=== PATIENT | male | born 1935 | race Caucasian/White ===

== ENCOUNTER 2019-07-17 15:52 | Inpatient (IN) | payer OTHER ==
[~2019-07-17] VITALS: Ht 152.4 cm; Wt 84.4 kg
[~2019-07-17 15:52] MED LIST: AGGRENOX 25 MG1 EACH PO; ALLEGRA180 MG PO; APAP500 PO; ASPIR-TRIN325 MG PO; AVODART0.5 MG PO; BENICAR HCT 401 EACH PO; BYSTOLIC20 MG PO; CHLORTHALIDONE25 MG PO; CLONIDINE HCL0.1 MG PO; COLACE 100 MG100 MG PO; COLACE100 MG PO; COZAAR 50 MG TA50 M1 PO; DOXYCYCLINE 10100 M1 PO; DOXYCYCLINE 10100 MG PO; ENOXAPARIN40 MG/0.1 SUBQ; FLONASE16 GM NASAL; HYDROCODONE-AP1 EACH PO; HYTRIN10 MG PO; KEFLEX500 MG PO; LIPITOR20 MG PO; LUPRON DEPOT45 MG; MILK OF MA400 MG/5 M PO; NABUMETONE 500500 M1 PO; NABUMETONE PO; NORCO 10-325 T1 EACH PO; NOVOLOG100 UNIT/1 SUBQ; PROVENTIL IH; RAZADYNE 8 MG PO; SENNA LAX8.6 MG PO; SUPRAX400 MG PO; TERAZOSIN PO; TIZANIDINE HCL2 M1 PO; TIZANIDINE HCL6 MG PO; TOPROL XL50 MG PO; TYLENOL EX-STR500 M2 PO; TYLENOL EXTRA500 MG PO; VENTOLIN HFA INH8 GM INH; ZANAFLEX PO; ZANAFLEX6 MG PO; ZOFRAN ODT4 MG PO
[2019-07-17 16:20] VITALS: BP 142/82
[2019-07-17 19:30] VITALS: BP 143/77
[2019-07-17 20:40] LABS: ABSOLUTE NEUTROPHILS 6.9 thou/uL (1.4-8.2); BASOPHILS 0.5 % (0.0-2.0); EOSINOPHILS 2.6 % (0.0-3.0); HEMATOCRIT 42.3 % (42.0-52.0); LYMPHOCYTES 11.7 % (24.0-44.0); MCH 30.8 pg (26.0-34.0); MCV 93.6 fL (80.0-100.0); MONOCYTES 9.6 % (1.0-8.0); PLATELET COUNT 177 thou/uL (150-400); POLYS 75.6 % (36.0-66.0); RBC 4.52 mil/uL (4.50-6.00); RDW 14.1 % (10.5-14.5); WBC 9.2 thou/uL (4.0-11.0)
[2019-07-17 20:51] LABS: ALBUMIN 3.4 g/dL (3.4-5.0); CALCIUM 8.9 mg/dL (8.5-10.1); CREATININE 1.4 mg/dL (0.7-1.3); POTASSIUM 4.6 mmol/L (3.5-5.1); TOTAL BILIRUBIN 0.5 mg/dL (<0.1-1.0); TOTAL PROTEIN 7.3 g/dL (6.4-8.2)
[2019-07-18] VITALS: BP 142/81
[2019-07-18 04:45] VITALS: BP 146/83
[2019-07-18 07:22] VITALS: BP 147/68
--- NOTE | 2019-07-18 08:39 | EKG ---
[address] [address] ELECTROCARDIOGRAM REPORT Name: PEREZ PEÑA Room #: 351-P ADM IN M.R.#: [id number] Admission: 07/17/19 Attend Phys: Yaw Stewart Discharge: Date of : 33 Report #: [id number] THIS REPORT FOR: //name// [facility] Test Date: 2019-07-17 Test Time: 18:17:59 Pat Name: PEREZ PEÑA Department: Room: 351 P Gender: M Lead Technical Writer: Yaw QIU : 1935 Requested By: Dorian Ayoub Order Number: [id number] MD: Olegario Sheehan Measurements Intervals [place] Rate: 97 P: 53 [place]: 142 QRS: 9 QRSD: 103 T: QT: 383 QTc: 487 Interpretive Statements Sinus rhythm Nonspecific ST and T wave abnormality Borderline prolonged QT interval Compared to ECG 11/07/2013 10:50:49 Atrial premature complex(es) no longer present ST (T wave) deviation no longer present Electronically Signed On 07-18-2019 8:39:41 WEIR FISHER by Olegario Sheehan [email or web address] <ELECTRONICALLY SIGNED> By: Olegario Sheehan MD, FACC 07/18/19 0839 1817 1817 Olegario Sheehan MD, [facility] /EPI
--- NOTE | 2019-07-18 11:03 | 2DMMODE ---
[facility] [address] [place] [address] 2 D/M-MODE ECHOCARDIOGRAM Name: PEREZ PEÑA Room #: 351-P [facility] IN ..#: [id number] Admission: 07/17/19 Attend Phys: Dorian Padilla Discharge: Date of : 34 Report #: [id number] THIS REPORT FOR: //name// APPROVED REPORT Study performed: 07/18/2019 10:03:47 EXAM: Comprehensive 2D, Doppler, and color-flow Echocardiogram Patient Location: Echo lab Room #: 351 Status: routine BSA: 1.92 HR: 98 bpm BP: 147/68 mmHg Rhythm: NSR Other Information Study Quality: Good Indications Short of breath. Hx: CVA, CA, HTN. 2D Dimensions RVDd: 40.67 mm IVSd: 11.00 (7-11mm) LVOT Diam: 21.16 (18-24mm) LVDd: 64.00 mm PWd: 11.00 (7-11mm) Ascending Ao: 35.03 (22-36mm) LVDs: 57.17 (25-40mm) Aortic Root: 39.28 mm Volumes Left Atrial Volume (Systole) Single Plane 4CH: 49.55 mL Single Plane 2CH: 71.03 mL LA ESV Index: 34.00 mL/m2 Aortic Valve AoV Peak Ar.: 1.35 m/s AO Peak Gr.: 7.26 mmHg LVOT Max P.42 mmHg LVOT Max V: 0.78 m/s AMAYA Vmax: 2.03 cm2 AI Vmax: 3.98 m/s AI Merrick: 3.76 m/s2 AI PHT: 307.36 ms Mitral Valve [facility] [address] [place] [address] 2 D/M-MODE ECHOCARDIOGRAM Name: PEREZ PEÑA Room #: 351-P [facility] IN [facility].#: [id number] Admission: 07/17/19 Attend Phys: Dorian Padilla Discharge: Date of : 34 Report #: [id number] E/A Ratio: 0.9 MV Decel. Time: 143.64 ms MV E Max Ar.: 0.81 m/s MV A Ar.: 0.91 m/s MV PHT: 41.66 ms IVRT: 76.12 ms Pulmonary Valve PV Peak Ar.: 0.70 m/s PV Peak Gr.: 1.96 mmHg Pulmonary Vein P Vein S: 0.50 m/s P Vein A: 0.33 m/s P Vein D: 0.60 m/s P Vein A Dur.: 100.3 msec P Vein S/D Ratio: 0.83 Tricuspid Valve TR Peak Ar.: 3.59 m/s RAP Estimate: 10.00 mmHg TR Peak Gr.: 52.00 mmHg PA Pressure: 62.00 mmHg Left Ventricle Left ventricle is moderately dilated. There is normal left ventricular wall thickness. Left ventricular systolic function is severely decreased. LVEF is 25%. Mild diastolic dysfunction is present (impaired relaxation pattern). Right Ventricle The right ventricle is normal size. Right ventricle is mildly hypokinetic. Atria Left atrium is mildly dilated. The right atrium size is normal. Aortic Valve The aortic valve is normal in structure. Mild to moderate aortic regurgitation. There is no aortic valvular stenosis. Mitral Valve The mitral valve is normal in structure. Moderate mitral regurgitation. Tricuspid Valve The tricuspid valve is normal in structure. Mild tricuspid regurgitation. Estimated PAP is 62mmHg. [facility] [address] [place] [address] 2 D/M-MODE ECHOCARDIOGRAM Name: CASEYPEREZ Jovi Room #: 351-P [facility] IN .R.#: [id number] Admission: 07/17/19 Attend Phys: Dorian Padilla Discharge: Date of : 34 Report #: [id number] Pulmonic Valve The pulmonary valve is normal in structure. Trace pulmonic regurgitation. Great Vessels Aortic root is mildly dilated. The ascending aorta is normal in size. IVC is dilated and collapses <50% with inspiration. Pericardium Trivial to small pericardial effusion. <Conclusion> Left ventricle is moderately dilated. LVEF is 25%. Left atrium is mildly dilated. The aortic valve is normal in structure. Mild to moderate aortic regurgitation. The mitral valve is normal in structure. Moderate mitral regurgitation. The tricuspid valve is normal in structure. Mild tricuspid regurgitation. Estimated PAP is 62mmHg. The pulmonary valve is normal in structure. Trace pulmonic regurgitation. Trivial to small pericardial effusion. <ELECTRONICALLY SIGNED> By: Manuel Tovar MD 07/18/191101 01 01 Manuel Tovar MD /INF
[2019-07-18 12:09] VITALS: BP 132/70
[2019-07-18 17:02] LABS: CHOLESTEROL 190 mg/dL (<200); HDL CHOLESTEROL 50 mg/dL (>40); LDL CHOLESTEROL 123 mg/dL (<100); TC:HDL 3.8 Ratio (Not establshd); TRIGLYCERIDE 88 mg/dL (<150); VLDL 18 mg/dL (<40)
[2019-07-18 21:20] VITALS: BP 141/64
[2019-07-18 22:23] LABS: BE(vivo) -4.1 mmol/L (-2 to +3); HCO3 18.3 mmol/L (22.0-26.0); PCO2 27.5 mmHg (35.0-45.0); PO2 78.8 mmHg (80.0-100.0); pH 7.441 (7.360-7.450); sO2 96.3 % (92.0-98.0)
[2019-07-18 23:30] LABS: URINE BILIRUBIN NEGATIVE (Negative); URINE BLOOD 3+ (Negative); URINE CLARITY SL CLOUDY; URINE COLOR YELLOW; URINE GLUCOSE-RANDOM* NEGATIVE (Negative); URINE KETONES NEGATIVE (Negative); URINE LEUKOCYTES-REFLEX 2+ (Negative); URINE NITRITE-REFLEX POSITIVE (Negative); URINE PROTEIN (DIPSTICK) NEGATIVE (Negative); URINE UROBILINOGEN 0.2 E.U./dl (0.2-1.0)
[2019-07-18 23:37] LABS: BACTERIA-REFLEX >30 Many /HPF (None Seen); HYALINE CASTS 0-3 Few /LPF (None Seen); MUCUS 0-3 Light strn/LPF (None Seen); SQUAMOUS 0-3 Few /LPF (0-3)
[2019-07-18 23:38] LABS: CRYSTALS None Seen /LPF (None Seen)
[2019-07-19 00:30] VITALS: BP 106/59
[2019-07-19 04:45] VITALS: BP 102/54
[2019-07-19 06:05] LABS: CALCIUM 8.8 mg/dL (8.5-10.1); CREATININE 1.7 mg/dL (0.7-1.3); POTASSIUM 4.2 mmol/L (3.5-5.1)
[2019-07-19 07:47] VITALS: BP 92/65
--- NOTE | 2019-07-19 10:00 | H ---
[facility] [place] [address] HISTORY AND PHYSICAL Name: CASEYPEREZ Jovi Room #: 206-P ADM IN M.R.#: [id number] Admission: 07/17/19 Attend Phys: Yaw Stewart Discharge: Date of : 34 Report #: [id number] THIS REPORT FOR: //name// CC: Dorian Ayoub DATE OF SERVICE: 07/17/2019 ATTENDING PHYSICIAN: Dr. Ayoub. CHIEF COMPLAINT: Shortness of breath. HISTORY OF PRESENT ILLNESS: The patient is an 84-year-old gentleman with a history of multiple sclerosis who was admitted from the office with progressive shortness of breath. He said over the last several weeks to a month, he has dyspnea on exertion. He has noted a little bit of wheezing and a tight nonproductive cough. He has had no fever, chills or sinus congestion. He has not had any mucus or congested cough. He denies any chest pain. I spoke with Dr. Ayoub and he noticed in the office there was a slight wheeze and he was directed for admission. So far, an echocardiogram has revealed a left ventricular function 25%. He has also noted some increased leg edema. PAST MEDICAL HISTORY: MS, prostate cancer treated in the past, history of stroke. PAST SURGICAL HISTORY: None. FAMILY HISTORY: Noncontributory. SOCIAL HISTORY: He lives in assisted living facility. No chronic alcohol or tobacco use. ALLERGIES: PENICILLIN AND CIPRO. MEDICATIONS: Hydrocodone, Aggrenox. REVIEW OF SYSTEMS: Denies headache, chest pain, fever, chills, nausea, vomiting, diarrhea, constipation, dysuria, syncope. OBJECTIVE: VITAL SIGNS: Temperature 36.4, pulse 92, respirations 18, blood pressure 132/70, O2 sat 93% on room air. GENERAL: He is awake and alert, in no distress. HEAD AND NECK: Unremarkable. LUNGS: He has expiratory wheezes. HEART: Regular, no murmur. ABDOMEN: Soft, normoactive bowel sounds. [facility] [address] [place] [address] HISTORY AND PHYSICAL Name: PEREZ PEÑA Room #: [facility] IN ..#: [id number] Admission: 07/17/19 Attend Phys: Yaw Stewart Discharge: Date of : 34 Report #: [id number] EXTREMITIES: 1-2+ lower leg edema. NEUROLOGIC: Cranial nerves intact. Speech is fluent. He is alert and oriented. Global strength about 4/5 throughout. LABORATORY REVIEW: CBC is normal. Creatinine 1.4, otherwise chemistries normal and LFTs normal. Echo shows decreased LV function of 25%. Chest x-ray shows interstitial opacities in the mid and lower lung suggesting interstitial edema. ASSESSMENT: 1. Cardiomyopathy. 2. Chronic kidney disease, stage 3. 3. Chronic, stable multiple sclerosis. PLAN: Cardiology services to assess him. I agree with the IV Lasix and additional troponin and BNP are still pending. This may be a medical management situation. He has requested Do Not Resuscitate status. Lovenox for DVT prophylaxis. <ELECTRONICALLY SIGNED> By: Golden Jimenes MD 07/19/19 1000 1338 1410 Golden Jimenes MD /nt
[2019-07-19 13:06] VITALS: BP 106/59
[2019-07-19 17:26] VITALS: BP 115/65
[2019-07-19 20:28] VITALS: BP 141/77
[2019-07-20 04:00] VITALS: BP 121/65
[2019-07-20 07:45] VITALS: BP 129/74
[2019-07-20 09:38] LABS: HEMATOCRIT 41.9 % (42.0-52.0); HEMOGLOBIN 13.4 gm/dL (14.0-18.0); MCH 30.4 pg (26.0-34.0); MCHC 31.9 g/dL (28.0-37.0); MCV 95.1 fL (80.0-100.0); RBC 4.4 mil/uL (4.50-6.00); RDW 14.2 % (10.5-14.5); WBC 11.2 thou/uL (4.0-11.0)
[2019-07-20 09:51] LABS: CALCIUM 8.1 mg/dL (8.5-10.1); CREATININE 1.4 mg/dL (0.7-1.3); POTASSIUM 3.8 mmol/L (3.5-5.1)
[2019-07-20 12:09] VITALS: BP 99/56
[2019-07-20 16:28] VITALS: BP 103/70
[2019-07-20 20:00] VITALS: BP 114/53
[2019-07-21] VITALS: BP 121/59
[2019-07-21 04:25] VITALS: BP 126/79
[2019-07-21 04:48] LABS: HEMOGLOBIN 13.1 gm/dL (14.0-18.0); MCH 30.7 pg (26.0-34.0); MCHC 32.7 g/dL (28.0-37.0); MCV 93.9 fL (80.0-100.0); RBC 4.25 mil/uL (4.50-6.00); RDW 13.9 % (10.5-14.5); WBC 8.2 thou/uL (4.0-11.0)
[2019-07-21 04:58] LABS: CALCIUM 8.2 mg/dL (8.5-10.1); CREATININE 1.4 mg/dL (0.7-1.3); POTASSIUM 3.5 mmol/L (3.5-5.1)
[2019-07-21 07:30] VITALS: BP 117/62
[2019-07-21 11:35] VITALS: BP 87/48
[2019-07-21 17:50] VITALS: BP 143/75
[2019-07-21 19:56] VITALS: BP 112/70
[2019-07-22 04:43] LABS: CALCIUM 8.3 mg/dL (8.5-10.1); CREATININE 1.3 mg/dL (0.7-1.3); POTASSIUM 3.4 mmol/L (3.5-5.1)
[2019-07-22 04:49] VITALS: BP 115/64
[2019-07-22 07:43] VITALS: BP 122/62
[2019-07-22 11:34] VITALS: BP 98/47
[2019-07-22 16:28] VITALS: BP 116/60
[2019-07-22 20:00] VITALS: BP 124/50
[2019-07-23 04:33] VITALS: BP 131/78
[2019-07-23 05:09] LABS: HEMATOCRIT 41.4 % (42.0-52.0); HEMOGLOBIN 13.6 gm/dL (14.0-18.0); MCH 30.9 pg (26.0-34.0); MCV 93.8 fL (80.0-100.0); RBC 4.41 mil/uL (4.50-6.00); RDW 13.8 % (10.5-14.5); WBC 8.1 thou/uL (4.0-11.0)
[2019-07-23 05:17] LABS: CALCIUM 8.9 mg/dL (8.5-10.1); CREATININE 1.2 mg/dL (0.7-1.3); POTASSIUM 3.5 mmol/L (3.5-5.1)
[2019-07-23 07:55] VITALS: BP 134/69
[2019-07-23 15:39] VITALS: BP 133/63
[2019-07-23 19:44] VITALS: BP 130/65
[2019-07-23 20:00] VITALS: BP 130/65
[2019-07-24 04:30] VITALS: BP 133/79
[2019-07-24 07:45] VITALS: BP 143/86
[2019-07-24 10:45] VITALS: BP 105/64
[2019-07-24 16:55] VITALS: BP 125/80
[2019-07-24 19:45] VITALS: BP 110/40
[2019-07-24 23:25] VITALS: BP 116/62
[2019-07-25 04:19] VITALS: BP 116/64
[2019-07-25 07:24] VITALS: BP 139/70
[2019-07-25 11:33] VITALS: BP 82/39
[2019-07-25] MEDS ORDERED: LIPITOR 20 MG T20 M1 PO (12:41)
[2019-07-25] MEDS ORDERED: COREG6.25 MG PO (12:41)
[2019-07-25] MEDS ORDERED: NORCO 10-325 T1 EACH PO (12:41)
[2019-07-25] MEDS ORDERED: COZAAR 25 MG TA25 M1 PO (12:41)
[2019-07-25] MEDS ORDERED: LASIX 40 MG TAB40 M1 PO (12:42)
[2019-07-25] MEDS ORDERED: BACTRIM DS TAB1 EACH PO (12:44)
[2019-07-25] MEDS ORDERED: KLOR-CON 10 ER10 MEQ PO (13:02)
--- NOTE | 2019-08-05 16:10 | D ---
[facility] [place] [address] [place] [address] DISCHARGE SUMMARY Name: PEREZ PEÑA Room #: 206-P [facility] IN ..#: [id number] Admission: 07/17/19 Attend Phys: Yaw Stewart Discharge: 07/25/19 Date of : 34 Report #: [id number] THIS REPORT FOR: //name// CC: Dorian Ayoub DATE OF SERVICE: 07/25/2019 FINAL DIAGNOSES: 1. Nonischemic cardiomyopathy, ejection fraction 25%. 2. Urinary tract infection due to Escherichia coli. 3. Bacteremia due to Escherichia coli. 4. Neurogenic bladder. 5. Urinary retention. 6. Multiple sclerosis. HOSPITAL COURSE: The patient was admitted with weakness and shortness of breath. Workup revealed cardiomyopathy and EF of 25%. Ultimately, he had a nuclear stress test that showed low probability for inducible ischemia. There was an old fixed defect, but nothing else acute. He also was found with a urinary tract infection and bacteremia of E. coli. He was treated for 1 week with IV Merrem and then switched to oral Bactrim according to sensitivities. He had difficulty with urinary retention and Wilde catheter was placed for bladder decompression. PHYSICAL EXAMINATION: On the day of discharge: GENERAL: He was awake and alert. VITAL SIGNS: Stable vital signs. LUNGS: Clear. HEART: Regular. ABDOMEN: Soft, normoactive bowel sounds. EXTREMITIES: No edema. DISPOSITION: He will be transferred to a shelter unit under the care of the inhouse physician. Low-sodium diet, activity as tolerated. PT, OT. He will continue Wilde catheter until his self-catheterization supplies are available from home and then it can be removed and he can resume his usual self-catheterization schedule 4 times a day. He will have Bactrim for 1 week, losartan 25 mg, Coreg 6.25 mg b.i.d., Aggrenox, Lipitor, and hydrocodone as needed. He continues DO NOT RESUSCITATE status. <ELECTRONICALLY SIGNED> By: Golden Jimenes MD 08/05/19 1610 1304 1319 Golden Jimenes MD /nt
== END 2019-07-25 16:19 | DRG 314 ==
LOC: 3W 15:52 → 2N 15:52
PROVIDERS: Internal Medicine Cardiovascular Disease; Internal Medicine Geriatric Medicine; Nurse Practitioner Adult Health; ADMIT Internal Medicine
DX: I42.8 Other cardiomyopathies (principal); N17.0 Acute kidney failure with tubular necrosis; N17.9 Acute kidney failure, unspecified; N39.0 Urinary tract infection, site not specified; I13.0 Hypertensive heart and chronic kidney disease with heart failure and stage 1 through stage 4 chronic kidney disease, or unspecified chronic kidney disease; R78.81 Bacteremia; I08.3 Combined rheumatic disorders of mitral, aortic and tricuspid valves; Z66 Do not resuscitate; I95.9 Hypotension, unspecified; N18.3 Chronic kidney disease, stage 3 (moderate); N31.9 Neuromuscular dysfunction of bladder, unspecified; R33.9 Retention of urine, unspecified; E78.5 Hyperlipidemia, unspecified; I50.9 Heart failure, unspecified; G35 Multiple sclerosis; B96.20 Unspecified Escherichia coli [E. coli] as the cause of diseases classified elsewhere; Z85.46 Personal history of malignant neoplasm of prostate; Z88.1 Allergy status to other antibiotic agents; Z88.0 Allergy status to penicillin; Z79.82 Long term (current) use of aspirin; Z79.899 Other long term (current) drug therapy; Z87.891 Personal history of nicotine dependence; Z86.73 Personal history of transient ischemic attack (TIA), and cerebral infarction without residual deficits; Z79.2 Long term (current) use of antibiotics
CPT/HCPCS: 10081; 10879

== ENCOUNTER 2020-05-31 11:19 | Emergency (ER) | payer OTHER ==
[~2020-05-31] VITALS: Ht 162.6 cm; Wt 92.1 kg
--- NOTE | ~2020-05-31 | EMS ---
[address] [address] EMS Patient Care Report Name: PEREZ PEÑA Room #: REG MOISÉS Gomez#: [id number] Admission: 05/31/20 Attend Phys: Discharge: Date of : 34 Report #: [id number] THIS REPORT FOR: //name// Report Transmitted: 05/31/2020 12:30 EMS Care Summary [facility] Incident [id number] @ 05/31/2020 10:43 Incident Location [address] [place] [address] Patient PEREZ PEÑA Male, 84 Years 1935 Patient Address [address] [place] [address] Patient History Congestive Heart Failure (CHF),Stroke/CVA,Multiple Sclerosis,Prostate Cancer, Patient Allergies Penicillin allergy,Cipro,Gabapentin, Patient Medications Furosemide, Carvedilol, Melatonin, ASA, Triamterene, Losartan, Senna, Chief Complaint Fall to back of head Disposition Transported No Lights/[place] Dispatch Reason Falls Transported To [facility] Narrative [facility] dispatched for a male that had fallen at the [facility] assisted living facility. Pt was sitting in his wheelchair speaking with staff after breakfast [address] [address] EMS Patient Care Report Name: PEREZ PEÑA Room #: REG MOISÉS Gomez#: [id number] Admission: 05/31/20 Attend Phys: Discharge: Date of : 34 Report #: [id number] and attempted to slide forward in his chair for comfort when he slid out of the front of the chair. Pt struck his head on the ground and EMS was called. On scene found a male pt sitting on the floor. Pt had slight swelling on the back of his head. pt admitted to pain that he rated 2/10. Pt was AO4. Airway was patent and free from obstruction. Breathing was non labored with bilateral chest rise and fall. Skin was pink warm and dry. Pt was unable to stand up without assistance and EMS lifted the man with a "[place] carry". Pt was placed on the cot and secured with all straps. CSS was negative. Pt was taken to ambulance. Pt was taken to [facility] per his request. Pt remaiNED aO4. Airway was clear and breathing was within normal limits. Pt stated that his pain is now 0/10. Iv and 4ld were considered but withheld due to general impression. Pt was taken to room 9 on arrival and verbal report was given to nursing staff Pt was placed on the bed by EMS lifting him with the sheet. Pt signed fro himself and EMS returned to service. Initial Vitals @11:11P: 86,R: 18,BP: 153/103,Pain: 0/10,GCS: 15,Glucose: 131,SpO2: 98,Revised Trauma: 12, @11:14P: 86,R: 18,BP: 161/108,Pain: 2/10,GCS: 15,SpO2: 98,Revised Trauma: 12, Assessments @11:00MENTAL:Person Oriented,Time Oriented,Event Oriented,Place Oriented,SKIN:HEENT:Head/Face: Swelling,Eyes: No Abnormalities,Neck/Airway: No Abnormalities,LUNG SOUNDS:General: No Abnormalities,ABDOMEN:General: No Abnormalities,PELVIS//GI:No Abnormalities,EXTREMITIES:Left Arm: No Abnormalities,Right Arm: No Abnormalities,Left Leg: No Abnormalities,Right Leg: No Abnormalities,PULSE:NEURO:No Abnormalities,@11:09MENTAL:No Abnormalities,SKIN:No Abnormalities,HEENT:Head/Face: Swelling,LUNG SOUNDS:General: No Abnormalities,Left Upper: No Abnormalities,Right Upper: No Abnormalities,Left Lower: No Abnormalities,Right Lower: No Abnormalities,ABDOMEN:General: No Abnormalities,Left Upper: No Abnormalities,Right Upper: No Abnormalities,Left Lower: No Abnormalities,Right Lower: No Abnormalities,PELVIS//GI:No Abnormalities,EXTREMITIES:Left Arm: No Abnormalities,Right Arm: No Abnormalities,Left Leg: No Abnormalities,Right Leg: No Abnormalities,PULSE:NEURO:No Abnormalities, Impression Injury of Head Procedures @11:00ALS AssessmentResponse: UnchangedSucceeded@11:08ALS AssessmentResponse: [place] [address] EMS Patient Care Report Name: PEREZ PEÑA Room #: AUDRA Gomez#: [id number] Admission: 05/31/20 Attend Phys: Discharge: Date of : 34 Report #: [id number] Timeline 10:41,Call Received 10:41,Psap Call 10:43,Dispatched 10:45,En Route 10:49,On Scene 10:51,At Patient 10:55,Depart Scene 11:00,ALS Assessment,Response: UnchangedSucceeded, 11:08,ALS Assessment,Response: UnchangedSucceeded, 11:11,BP: 153/103 M,PULSE: 86,RR: 18 R,SPO2: 98 Ox,ETCO2: ,B,PAIN: 0,GCS: 15, 11:14,BP: 161/108 M,PULSE: 86,RR: 18 R,SPO2: 98 Ox,ETCO2: ,BG: ,PAIN: 2,GCS: 15, 11:15,At Destination 11:45,Call Closed Disclaimer v1.1 Copyright 2020 [employer] This EMS Care Summary contains data elements from the applicable legal record (which may be displayed differently). It is designed to provide pertinent information for the following purposes: continuity of care, clinical quality, and state data reporting. The complete legal record is available to ED staff and administrators of the receiving hospital in [employer]'s Patient Tracker. All data is provided "as is."
[~2020-05-31 11:19] MED LIST changes: +BACTRIM DS TAB1 EACH PO; +COREG6.25 MG PO; +COZAAR 25 MG TA25 M1 PO; +KLOR-CON 10 ER10 MEQ PO; +LASIX 40 MG TAB40 M1 PO; +LIPITOR 20 MG T20 M1 PO
[2020-05-31] MEDS ORDERED: MELATONIN5 MG SUBLING (11:29)
[2020-05-31] MEDS ORDERED: AGGRENOX 25 MG1 EACH PO (11:30)
[2020-05-31] MEDS ORDERED: ACIDOPHILUS1 EAC4 PO (11:32)
[2020-05-31] MEDS ORDERED: MIRALAX119 GM PO (11:33)
[2020-05-31] MEDS ORDERED: TRIAMCINOLONE A80 G2 TOP (12:18)
[2020-05-31 13:41] VITALS: BP 153/77
== END 2020-05-31 13:41 | disposition home or self-care (01) ==
LOC: ER 11:19
DX: S00.03XA Contusion of scalp, initial encounter (principal); M19.90 Unspecified osteoarthritis, unspecified site; I50.9 Heart failure, unspecified; Z86.73 Personal history of transient ischemic attack (TIA), and cerebral infarction without residual deficits; Z85.46 Personal history of malignant neoplasm of prostate; Z79.899 Other long term (current) drug therapy; Z79.82 Long term (current) use of aspirin; Z88.1 Allergy status to other antibiotic agents; Z88.0 Allergy status to penicillin; Z88.8 Allergy status to other drugs, medicaments and biological substances; W18.39XA Other fall on same level, initial encounter; Y93.89 Activity, other specified; Y92.89 Other specified places as the place of occurrence of the external cause; Y99.8 Other external cause status

== ENCOUNTER 2021-05-22 09:43 | Emergency (ER) | payer OTHER ==
[~2021-05-22] VITALS: Ht 170.2 cm; Wt 93.0 kg
--- NOTE | ~2021-05-22 | EMS ---
[facility] [address] [place] [address] EMS Patient Care Report Name: PEREZ PEÑA Room #: SADIA Gomez#: [id number] Admission: 05/22/21 Attend Phys: Discharge: 05/22/21 Date of : 34 Report #: [id number] THIS REPORT FOR: //name// Report Transmitted: 05/25/2021 09:32 EMS Care Summary [facility] Incident [id number] @ 05/22/2021 09:08 Incident Location [address] [place] [address] Patient PEREZ PEÑA Male, 85 Years 1935 Patient Address [address] [place] [address] Patient History Cancer, Unspecified,Congestive Heart Failure (CHF),Stroke/CVA,Multiple Sclerosis, Patient Allergies Penicillin allergy,Cipro,Gabapentin, Patient Medications Fluticasone, Triaminic, Carvedilol, Losartan, Furosemide, Chief Complaint nose bleed Disposition Transported No Lights/[place] Dispatch Reason Sick Person Transported To [facility] Narrative Medic 41 dispatched to [facility] for a patient with a nose bleed, patient was an 85yo male who staff stated started to have a nose bleed while eating breakfast. Patient stated that it was his second nose bleed of the morning. [facility] [address] [place] [address] EMS Patient Care Report Name: PEREZ PEÑA Room #: [facility]#: [id number] Admission: 05/22/21 Attend Phys: Discharge: 05/22/21 Date of : 34 Report #: [id number] Patient stated he had no major complaints aside from the nose bleed that just did seem to stop. Arrived at the patients side he was aox4 and able to answer all questions appropriately, patient was holding pressure on his nose to help with the bleeding. Patient was assessed and found to have no airway compromise and appeared to have the bleeding under control. Patient was transferred to the cot where he was secured with belts in doing so the patient was very weak and stated he couldn't hardly stand or walk. Staff stated that was unusual that he would say that as he normally is up walking around with a walker. Patient was secured with belts then moved to the ambulance. Patient was attached to the monitor vitals were taken and noted that the bleeding had stopped and was under control. Patient was then transported safely without incident to [facility] per the patients request. Vitals, ekg Arrived at hospital the patient was taken inside to room 7 where he was lowered to the ER cart and transferred via sheet lift to the new bed. Report was given to the RN and the patient was left in stable condition with medical staff at bed side. Initial Vitals @09:18P: 85,R: 24,BP: 137/78,Pain: 0/10,GCS: 15,CO: 3,SpO2: 96,Revised Trauma: 12,[place] Suspected: false @09:33P: 79,R: 22,BP: 142/68,Pain: 0/10,GCS: 15,CO: 3,SpO2: 96,Revised Trauma: 12,[place] Suspected: false Assessments @09:15MENTAL:Person Oriented,Time Oriented,Place Oriented,Event Oriented,SKIN:HEENT:Head/Face: Drainage,LUNG SOUNDS:General: No Abnormalities,Left Upper: No Abnormalities,Right Upper: No Abnormalities,Left Lower: No Abnormalities,Right Lower: No Abnormalities,ABDOMEN:General: No Abnormalities,Left Upper: No Abnormalities,Right Upper: No Abnormalities,Left Lower: No Abnormalities,Right Lower: No Abnormalities,PELVIS//GI:No Abnormalities,EXTREMITIES:Left Arm: No Abnormalities,Right Arm: No Abnormalities,Left Leg: No Abnormalities,Right Leg: No Abnormalities,PULSE:NEURO:No Abnormalities,@09:33MENTAL:Event Oriented,Place Oriented,Time Oriented,Person Oriented,SKIN:HEENT:Head/Face: Drainage,LUNG SOUNDS:General: No Abnormalities,Left Upper: No Abnormalities,Right Upper: No Abnormalities,Left Lower: No Abnormalities,Right Lower: No Abnormalities,ABDOMEN:General: No Abnormalities,Left Upper: No Abnormalities,Right Upper: No Abnormalities,Left Lower: No Abnormalities,Right Lower: No Abnormalities,PELVIS//GI:No Abnormalities,EXTREMITIES:Left Arm: No Abnormalities,Right Arm: No Abnormalities,Left Leg: No Abnormalities,Right Leg: No Abnormalities,PULSE:NEURO:No Abnormalities, [address] [address] EMS Patient Care Report Name: PEREZ PEÑA Room #: [facility] MOISÉS Gomez#: [id number] Admission: 05/22/21 Attend Phys: Discharge: 05/22/21 Date of : 34 Report #: [id number] Impression Epistaxis Procedures @09:15ALS AssessmentResponse: UnchangedSucceeded@09:233-Lead ECGResponse: UnchangedSucceeded@09:34ALS AssessmentResponse: UnchangedSucceeded Timeline 09:07,Call Received 09:07,Psap Call 09:08,Dispatched 09:09,En Route 09:13,On Scene 09:14,At Patient 09:15,ALS Assessment,Response: UnchangedSucceeded, 09:18,BP: 137/78 M,PULSE: 85,RR: 24 R,SPO2: 96 Ox,ETCO2: ,BG: ,PAIN: 0,GCS: 15, 09:21,Depart Scene 09:23,3-Lead ECG,Response: UnchangedSucceeded, 09:33,BP: 142/68 M,PULSE: 79,RR: 22 R,SPO2: 96 Ox,ETCO2: ,BG: ,PAIN: 0,GCS: 15, 09:34,ALS Assessment,Response: UnchangedSucceeded, 09:38,At Destination 10:02,Call Closed Disclaimer v1.1 Copyright 2020 [employer] This EMS Care Summary contains data elements from the applicable legal record (which may be displayed differently). It is designed to provide pertinent information for the following purposes: continuity of care, clinical quality, and state data reporting. The complete legal record is available to ED staff and administrators of the receiving hospital in [employer]'s Patient Tracker. All data is provided "as is."
[~2021-05-22 09:43] MED LIST changes: +ACIDOPHILUS1 EAC4 PO; +MELATONIN5 MG SUBLING; +MIRALAX119 GM PO; +TRIAMCINOLONE A80 G2 TOP
[2021-05-22 11:08] LABS: ABSOLUTE NEUTROPHILS 5.4 thou/uL (1.4-8.2); BASOPHILS 0.5 % (0.0-2.0); HEMATOCRIT 37.6 % (42.0-52.0); HEMOGLOBIN 12.4 gm/dL (14.0-18.0); LYMPHOCYTES 15.5 % (24.0-44.0); MCH 31.6 pg (26.0-34.0); MCHC 33.1 g/dL (28.0-37.0); MCV 95.6 fL (80.0-100.0); MONOCYTES 13.5 % (1.0-8.0); PLATELET COUNT 196 thou/uL (150-400); POLYS 67.5 % (36.0-66.0); RBC 3.94 mil/uL (4.50-6.00); RDW 13.8 % (10.5-14.5)
[2021-05-22 11:29] LABS: APTT 33.7 Seconds (24.5-32.8); PROTIME 10.9 Seconds (10.5-12.1)
[2021-05-22 13:04] VITALS: BP 164/80
== END 2021-05-22 13:05 ==
LOC: ER 09:43
PROVIDERS: Emergency Medicine
DX: R04.0 Epistaxis (principal); I50.9 Heart failure, unspecified; M19.90 Unspecified osteoarthritis, unspecified site; G35 Multiple sclerosis; Z98.890 Other specified postprocedural states; Z85.46 Personal history of malignant neoplasm of prostate; Z79.891 Long term (current) use of opiate analgesic; Z79.899 Other long term (current) drug therapy; Z79.1 Long term (current) use of non-steroidal anti-inflammatories (NSAID); Z79.51 Long term (current) use of inhaled steroids; Z79.82 Long term (current) use of aspirin; Z88.1 Allergy status to other antibiotic agents; Z88.0 Allergy status to penicillin; Z88.8 Allergy status to other drugs, medicaments and biological substances

== ENCOUNTER → 2021-07-10 | Outpatient (CLI) | payer OTHER | LOC: ULTRA 13:24 | PROVIDERS: ATTEND Internal Medicine | DX: N28.1 Cyst of kidney, acquired (principal); N17.9 Acute kidney failure, unspecified ==